=== PATIENT | male | born 1995 | race Caucasian/White ===

== ENCOUNTER 2016-10-27 23:34 | Emergency (ER) | payer SELFPAY ==
[~2016-10-27] VITALS: Ht 180.3 cm; Wt 118.0 kg
[2016-10-27 23:42] VITALS: BP 152/80
== END 2016-10-28 01:09 | disposition home or self-care (01) ==
LOC: ED 23:59
DX: S90.512A Abrasion, left ankle, initial encounter (principal); X58.XXXA Exposure to other specified factors, initial encounter; Y93.89 Activity, other specified; Y92.009 Unspecified place in unspecified non-institutional (private) residence as the place of occurrence of the external cause; Y99.9 Unspecified external cause status
CPT/HCPCS: 99284

== ENCOUNTER 2017-04-24 15:38 | Emergency (ER) | payer SELFPAY ==
[~2017-04-24] VITALS: Ht 177.8 cm; Wt 132.2 kg
[2017-04-24] MEDS ORDERED: DIAZEPAM 5 MG TABLET ONE (16:11)
[2017-04-24] MEDS ORDERED: KETOROLAC 30 MG/1 ML ONE (16:11)
[2017-04-24] MEDS ORDERED: KETOROLAC 30 MG/1 ML IM ONE (16:30)
[2017-04-24] MEDS ORDERED: DIAZEPAM 5 MG TABLET PO ONE (16:30)
[2017-04-24 17:29] VITALS: BP 115/55
== END 2017-04-24 17:31 | disposition home or self-care (01) ==
LOC: ED 17:20
DX: S16.1XXA Strain of muscle, fascia and tendon at neck level, initial encounter (principal); S39.012A Strain of muscle, fascia and tendon of lower back, initial encounter; V49.9XXA Car occupant (driver) (passenger) injured in unspecified traffic accident, initial encounter; Y93.89 Activity, other specified; Y92.89 Other specified places as the place of occurrence of the external cause; Y99.8 Other external cause status
CPT/HCPCS: 72110; 72125; 96372; 99284; J1885

== ENCOUNTER 2018-03-08 22:58 | Emergency (ER) | payer SELFPAY ==
[~2018-03-08] VITALS: Ht 177.8 cm; Wt 150.7 kg
[2018-03-09] MEDS ORDERED: KETOROLAC 30 MG/1 ML IM ONE (00:30)
[2018-03-09] MEDS ORDERED: METHOCARBAMOL 750 MG TABLET PO ONE (00:30)
[2018-03-09] MEDS ORDERED: KETOROLAC 30 MG/1 ML ONE (00:31)
[2018-03-09] MEDS ORDERED: METHOCARBAMOL 750 MG TABLET ONE (00:31)
[2018-03-09 01:22] VITALS: BP 118/59
== END 2018-03-09 01:26 | disposition home or self-care (01) ==
LOC: ED 23:59
DX: S29.012A Strain of muscle and tendon of back wall of thorax, initial encounter (principal); M54.41 Lumbago with sciatica, right side; X50.0XXA Overexertion from strenuous movement or load, initial encounter; Y93.89 Activity, other specified; Y99.0 Civilian activity done for income or pay; Y92.69 Other specified industrial and construction area as the place of occurrence of the external cause
CPT/HCPCS: 96372; 99283; J1885